=== PATIENT | male | born 1950 | race Caucasian/White ===

== ENCOUNTER 2017-05-19 07:26 | Outpatient (CLI) | payer MEDICARE ==
--- NOTE | 2017-05-19 07:49 | RAD ---
CHEST 2 VIEWS: Date: 05/19/17 HISTORY: Dyspnea. COMPARISON: 07/09/10. FINDINGS: Normal cardiac silhouette. Pulmonary vessels and hilum are normal. Costophrenic angles are clear. The re are chronic changes throughout the lung parenchyma. No masses or consolidation. No pneumothorax or osseous abnormalities. IMPRESSION: Chronic changes throughout the lung parenchyma. POS: [facility]
== END 2017-05-19 07:27 | disposition home or self-care (01) ==
LOC: RAD 07:26
PROVIDERS: ATTEND Internal Medicine Critical Care Medicine
DX: R06.00 Dyspnea, unspecified (principal)
CPT/HCPCS: 71046

== ENCOUNTER 2018-07-13 10:44 | Outpatient (CLI) | payer MEDICARE ==
--- NOTE | 2018-07-13 11:32 | RAD ---
CHEST TWO VIEWS: History: Dyspnea. Comparison: 05-19-17 FINDINGS: Normal cardiac silhouette. The pulmonary vessels and hilum are normal. Costophrenic angles are clear. Chronic change in the lung parenchyma. No consolidation or mass. No pneumothorax or osseous abnormal ity. IMPRESSION: No acute cardiopulmonary process. POS: [facility]
== END 2018-07-13 10:45 | disposition home or self-care (01) ==
LOC: BICRAD 10:44
PROVIDERS: ATTEND Internal Medicine Critical Care Medicine
DX: R06.00 Dyspnea, unspecified (principal)
CPT/HCPCS: 71046

== ENCOUNTER 2019-05-10 08:08 | Outpatient (CLI) | payer MEDICARE ==
--- NOTE | 2019-05-10 08:41 | CT ---
EXAM: CT chest without contrast per low-dose cancer screening protocol HISTORY: History of smoking and nicotine dependence COMPARISON: None TECHNIQUE: Multiple contiguous axial images were obtained in a CT of the chest without contrast per l ow-dose cancer screening protocol. Sagittal and coronal reformats were performed. FINDINGS: Pulmonary nodules: No suspicious pulmonary nodules are seen. No focal infiltrates are seen. Bronchiec tasis is seen in the right lung base. Peripheral increased interstitial lung disease is seen bilaterally, right greater than left. Pleural space: No pneumothorax or pleural effusion are seen. Heart: The heart is normal in size. Mediastinum: No hilar or mediastinal lymphadenopathy appreciated on this limited noncontrast examinat ion. Bones: Degenerative changes in the spine. Visualized subdiaphragmatic structures: Unremarkable. IMPRESSION: Lung RADS category 1-negative.
== END 2019-05-10 08:09 | disposition home or self-care (01) ==
LOC: CT 08:08
PROVIDERS: ATTEND Internal Medicine Critical Care Medicine
DX: Z12.2 Encounter for screening for malignant neoplasm of respiratory organs (principal); Z87.891 Personal history of nicotine dependence
CPT/HCPCS: 80053; 83036; 85025; G0297; 36415

== ENCOUNTER 2020-05-09 08:47 | Outpatient (CLI) | payer MEDICARE ==
--- NOTE | 2020-05-09 09:46 | CT ---
CT chest noncontrast HISTORY: Pulmonary fibrosis. COMPARISON: 05/10/2019. FINDINGS: Lungs are well-inflated. Throughout each lung, peripheral interstitial thickening extending to the pleural surface is present. More pronounced in general than on the prior exam. Peripheral honeycombing is now evident at the anterior aspect of each upper lobe, right greater than left. No lobar consolidation or parenchymal mass. No pleural fluid or pneumothorax. Calcified granulomata a re consistent with healed granulomatous disease. Small strand of mucus extends obliquely across the right mainstem bronchus. Lack of contrast limits evaluation of the soft tissues. Nonenlarged, reactive appearing lymph nodes w ithin the mediastinum measure up to 1.1 cm short axis diameter at the prevascular level. Within the partially visualized upper abdomen, left renal cyst measures up to 5.1 cm. There are 3 tin y calcifications within nondilated calyces of the superior pole right kidney, measuring up to 0.2 cm. IMPRESSION : Progression over the last year of fibrotic lung disease, with mild honeycombing evident anteriorly at each upper lobe, right greater than left. Small nonobstructing right renal calculi.
== END 2020-05-09 08:48 | disposition home or self-care (01) ==
LOC: BICCT 08:47
PROVIDERS: ATTEND Internal Medicine Critical Care Medicine
DX: J84.10 Pulmonary fibrosis, unspecified (principal); J98.4 Other disorders of lung; N20.0 Calculus of kidney
CPT/HCPCS: 71250

== ENCOUNTER 2021-05-07 09:55 | Outpatient (CLI) | payer MEDICARE | END 2021-05-07 09:56 | disposition home or self-care (01) | LOC: BICCT 09:55 | PROVIDERS: ATTEND Internal Medicine Critical Care Medicine | DX: J84.10 Pulmonary fibrosis, unspecified (principal); J98.4 Other disorders of lung | CPT/HCPCS: 71250 ==

== ENCOUNTER 2021-09-05 13:30 | Outpatient (CLI) | payer MEDICARE | END 2021-09-05 13:31 | disposition home or self-care (01) | LOC: SCSMRI 13:30 | PROVIDERS: ATTEND Family Medicine | DX: M50.10 Cervical disc disorder with radiculopathy, unspecified cervical region (principal); G89.4 Chronic pain syndrome; M96.1 Postlaminectomy syndrome, not elsewhere classified; M47.22 Other spondylosis with radiculopathy, cervical region | CPT/HCPCS: 72141 ==

== ENCOUNTER 2022-05-07 09:12 | Outpatient (CLI) | payer MEDICARE | END 2022-05-07 09:13 | disposition home or self-care (01) | LOC: BICCT 09:12 | PROVIDERS: ATTEND Internal Medicine Critical Care Medicine | DX: J84.10 Pulmonary fibrosis, unspecified (principal); R91.1 Solitary pulmonary nodule; N20.0 Calculus of kidney; I25.10 Atherosclerotic heart disease of native coronary artery without angina pectoris | CPT/HCPCS: 71250 ==

== ENCOUNTER 2022-05-22 10:15 | Outpatient (CLI) | payer MEDICARE | END 2022-05-22 10:16 | LOC: PET 10:15 | PROVIDERS: ATTEND Internal Medicine Critical Care Medicine | DX: R91.1 Solitary pulmonary nodule (principal) | CPT/HCPCS: 78815; A9552 ==

== ENCOUNTER 2022-12-30 08:05 | Outpatient (CLI) | payer MEDICARE | END 2022-12-30 08:06 | disposition home or self-care (01) | LOC: SCSMRI 08:05 | PROVIDERS: ATTEND Family Medicine | DX: M48.062 Spinal stenosis, lumbar region with neurogenic claudication (principal); M47.816 Spondylosis without myelopathy or radiculopathy, lumbar region; M51.36 Other intervertebral disc degeneration, lumbar region; M89.38 Hypertrophy of bone, other site; M47.817 Spondylosis without myelopathy or radiculopathy, lumbosacral region; M51.37 Other intervertebral disc degeneration, lumbosacral region | CPT/HCPCS: 72120; 72148 ==

== ENCOUNTER 2023-06-03 07:05 | Outpatient (CLI) | payer MEDICARE | END 2023-06-03 07:06 | disposition home or self-care (01) | LOC: BICCT 07:05 | PROVIDERS: ATTEND Internal Medicine Critical Care Medicine | DX: R91.1 Solitary pulmonary nodule (principal); J84.10 Pulmonary fibrosis, unspecified | CPT/HCPCS: 71250 ==